=== PATIENT | male | born 2000 | race Caucasian/White ===

== ENCOUNTER → 2024-08-08 | Outpatient (CLI) | payer BC ==
--- NOTE | 2024-08-10 15:41 | MR ---
EXAMINATION TYPE: MR shoulder LT wo con DATE OF EXAM: 08/08/2024 9:58 PM COMPARISON: None. CLINICAL INDICATION: Male, 24 years old with history of S43.432A SUPERIOR GLENOID LABRUM LESION OF [place]; PHH, LT Shoulder pain and numbness, Difficult to raise arm TECHNIQUE: Multi planar, multi sequence imaging was performed of the shoulder including: Axial and coronal rony n density fat-saturated sequences, T2 fat-saturated sagittal sequence, and T1-weighted imaging. No G adolinium was given. LT Shoulder pain and numbness, Difficult to raise arm FINDINGS: Supraspinatus tendon: Increased PD signal in the abdominal bursal surface of the supraspinatus te ndon. Infraspinatus tendon: Intact Subscapularis tendon: Intact Teres minor tendon: Intact Long head biceps tendon: Intact, appropriately positioned within the bicipital groove. Normal ins ertion at the bicipital anchor. Acromioclavicular joint: Normal joint space and alignment. Normal subacromial space. No effusio n. Glenohumeral joint: Normal joint space and alignment. Normal articular cartilage. No effusion. Glenoid labrum: Free edge fraying of the anterior labrum is series 701 image 19, Higher signal si gnals entering the superior labrum series 411 image 18. There is also some thickening of the anterior -inferior labrum Muscle volume: Normal. Bone marrow: Normal. Soft tissues: Unremarkable. Joint/bursal fluid: None IMPRESSION: 1. Suspected superior labral SLAP tear with fraying of the anterior labrum and possible remote injur y to the inferior anterior labrum. 2. Supraspinatus tendinosis. No full-thickness tear definitively visualized [facility], , 08/10/2024 3:39 PM
== END | disposition home or self-care (01) ==
LOC: RADMRIMAIN 21:35
PROVIDERS: ATTEND Family Medicine
DX: S43.432A Superior glenoid labrum lesion of left shoulder, initial encounter (principal); M75.102 Unspecified rotator cuff tear or rupture of left shoulder, not specified as traumatic; M67.814 Other specified disorders of tendon, left shoulder; X58.XXXA Exposure to other specified factors, initial encounter